=== PATIENT | male | born 1975 | race Caucasian/White ===

== ENCOUNTER 2021-04-09 14:14 | Inpatient (IN) | payer MEDICAID, SELFPAY ==
[2021-04-09 14:27] VITALS: BP 119/77; PULSE 97; RESP 17; TEMP 36.7; O2SAT 97
[2021-04-09 14:52] VITALS: BMI 16.9
[2021-04-09] MEDS: LORazepam 2 mg Tablet PO (18:23)
[2021-04-09] MEDS: duloxetine 60 mg Capsule PO (18:24)
[2021-04-09] MEDS: acetaminophen 325 mg Tablet 650 MG PO (18:28)
[2021-04-09] MEDS: nicotine 2 mg Gum BUCCAL (18:34)
[2021-04-09 20:37] VITALS: BP 123/79; PULSE 106; RESP 20; TEMP 36.7; O2SAT 97
[2021-04-09] MEDS: mirtazapine 15 mg Tablet PO (20:54)
[2021-04-10 05:47] VITALS: BP 115/74; PULSE 81; RESP 16; TEMP 36.6; O2SAT 97
[2021-04-10] MEDS: nicotine 2 mg Gum BUCCAL ×4 (06:18→21:01)
--- NOTE | 2021-04-10 07:29 | W.PM.NPUH&PS ---
Providers/Chief Complaint Admitting Physician: Sathish Calabrese MD Chief Complaint: Depression HPI NPU History of Present Illness Andrés Siddiqi is a 45 year old male admitted to the emergency department outside hospital with the following report: 45-year-old male presents with medical support specialist for suicidal ideation with no specific plan.? States he has made two suicide attempts in the past.? Reports his last treatment was January 2021, was in It Would like to Go Back to [place].? States That He Has Been Drinking Alcohol, about a Gallon of Vodka This Weekend, Last Alcohol Intake Was This Morning.? States That He Has Not Eaten in 2 Days.? Denies Recreational Drug Use for about 1 Year Now.? States He Smokes Cigarettes.? Reports That He Is Currently Feeling Anxious and Feels As If His Prescribe Cymbalta Is Not Working for Him.? He Denies Fever, Cough, Difficulty Breathing, Shortness of Breath Chest Pain, Vomiting or Diarrhea.? States He Only Has One Kidney, Left Kidney Noted.? He Has a History of Rheumatoid Arthritis. He was admitted to the neuropsychiatry unit for definitive treatment of these issues. He was hospitalized in January in [facility]. They discharged him on Cymbalta 60 mg daily and Remeron 15 mg at bedtime he says that he does not feel well. He has been on Zoloft and Valium previously and got the Zoloft was helpful. He also thinks that Paxil has been helpful in the past. He does not remember the dose of either of those medications The Remeron does not do much for his sleep. He still takes a handful of [id number] sleeping aids. He has been on Seroquel which has been helpful before. He denies weight gain from these medications. He has a lot of stomach upset from his anxiety. He has diverticulitis. He has always had problems with depression. He was admitted to the psychiatric hospital a couple times as a teenager. He says that the anxiety was not diagnosed until later. His depression has been worse again recently. He has been drinking very heavily over this past weekend he drank a gallon of vodka. He smokes marijuana whenever he can. He has been smoking marijuana all of his life. It helps the anxiety and the pain. He has not had new contact for it since he moved to this area. He has had worsening rheumatoid arthritis since 2015. 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 His father in 2017 and his mother in 2019. She drank herself to have. He was doing okay when he left the hospital in January. His depression worsened significantly in February after he was denied disability again. 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 He just wants to come in the hospital and get his medications changed and go home in 2 or 3 days. He has dogs that need to be taken care of. He has a female roommate that can take care of them some but she works 8 hours a day. PAST PSYCHIATRIC HISTORY As above SOCIAL HISTORY As above Meds NPU Home Medications Medication Instructions Recorded Confirmed Last Taken Type Cymbalta 60 mg PO DAILY 04/09/21 04/09/21 1 Day Ago History ~04/08/21 60 mg mirtazapine 15 mg tablet (Remeron) 15 mg PO DAILY 04/09/21 04/09/21 1 Day Ago History ~04/08/21 15 mg Allergies Allergy/AdvReac Type Severity Reaction Status Date / Time iodine Allergy ALGY-Rash Verified 04/09/21 15:01 Mental Status Exam MSE Comments: This is a 45-year old male who appears approximately his stated age and is in no acute distress. He is dressed in hospital scrubs. His grooming is fair. He has a full roca. He is somewhat tremulous. psychomotor activity mildly decreased except for the tremors. Speech is at a regular rate and rhythm, normal volume, good articulation, not pressured. Alert, oriented X3 Attention and concentration average. Memory is intact Mood is depressed. Affect is moderately dysphoric. Thought process is logical and goal-directed. Thought content: Denies auditory and visual hallucinations. No delusions or paranoia are noted. No current suicidal ideation but had thoughts very recently. and no homicidal ideation. Fund of knowledge is average. Insight and judgment appear to be fair. Impulse control is fairly good. Vitals/I&O/Wt Last Vital Signs Temp 97.8 F 04/10/21 05:47 Pulse 81 04/10/21 05:47 Resp 16 04/10/21 05:47 BP 115/74 04/10/21 05:47 Pulse Ox 97 04/10/21 05:47 Weight last 48 hrs Weight 56.699 kg A&P Assessment and plan (1) Depression: Status: Acute (2) Anxiety: Status: Acute (3) Alcohol abuse: Status: Acute (4) Suicidal ideation: Status: Acute Plan This is a disabled 45-year-old male with a long history of anxiety and depression who was admitted after binging on alcohol and having suicidal ideation. Plan: 1. Continue current medication. We will change Cymbalta to Zoloft 100 mg and plan on increasing to 200 mg as tolerated. Add Seroquel 100 mg at bedtime. 2. Continue every 15 minute checks for safety. 3. Encourage individual, group and milieu therapies. 4. Encourage sober living treatment after discharge at the highest level of care to which he is willing to commit. 5. We will monitor for safety for himself in the community prior to discharge. 6. [facility] protocol for alcohol withdrawal. Involuntary Hold Information 96 Hour Hold: 96 Hour Involuntary Admission: No Attestations NPU Medical Necessity Statement*: Inpatient hospitalization is medically necessary and the clinically appropriate intervention at this time. We will initiate medications and make changes as indicated. He will be in the hospital for over 2 midnights. Likely length of stay 4-6 days Coding Level of Care Code Acute Warp Worker for [facility] Diagnoses Depression F32.A Anxiety F41.9 Alcohol abuse F10.10 Suicidal ideation R45.856
[2021-04-10] MEDS: sertraline 100 mg Tablet PO (08:18)
[2021-04-10] MEDS: multivitamin therapeutic Tablet 1 TAB PO (08:18)
[2021-04-10] MEDS: folic acid 1 mg Tablet PO (08:18)
[2021-04-10] MEDS: thiamine 100 mg Tablet PO (08:18)
[2021-04-10] MEDS: acetaminophen 325 mg Tablet 650 MG PO (12:13)
[2021-04-10] MEDS: LORazepam 2 mg Tablet PO (12:13)
[2021-04-10 14:00] VITALS: BP 113/81; PULSE 88; RESP 18; TEMP 36.5; O2SAT 97
[2021-04-10] MEDS: mirtazapine 15 mg Tablet PO (20:43)
[2021-04-10] MEDS: quetiapine 100 mg Tablet PO (20:43)
[2021-04-10] MEDS: hyDROXYzine 25 mg Capsule 50 MG PO (20:46)
[2021-04-10 21:51] VITALS: BP 130/83; PULSE 83; RESP 18; TEMP 36.5; O2SAT 97
[2021-04-11] MEDS: acetaminophen 325 mg Tablet 650 MG PO ×2 (01:20→15:23)
[2021-04-11] MEDS: trazodone 50 mg Tablet PO (01:20)
--- NOTE | 2021-04-11 01:21 | PC.NURSE ---
Addendum entered by Ioana Resendiz LPN 04/11/21 01:28: Patient states he has been having visual hallucinations this evening. He sees people from his past coming into his room and talking to him. He states at times it is his parents and they have been for awhile. He is not startled. When I came into the room he was not sure if I was real or not. He is hopeful the Trazadone will help him sleep. Original Note: During 15 minute rounds nursing staff noticed patient was very restless and I ask if he was ok. He stated he was in pain and he could not sleep. Trazadone and Tylenol given at 0120.
[2021-04-11] MEDS: OLANZapine 5 mg ODT PO (02:53)
--- NOTE | 2021-04-11 02:54 | PC.NURSE ---
Patient up off and on throughout night, given Trazodone with no noted effectiveness. Patient endorsed visual and auditory hallucinations, stated sometimes he sees sparkles and sometimes he sees people he knows and they are talking to him. Given Olanzapine 5 mg ODT as ordered.
[2021-04-11 06:00] VITALS: BP 99/67; PULSE 75; RESP 17; TEMP 36.1; O2SAT 92
[2021-04-11] MEDS: folic acid 1 mg Tablet PO (09:22)
[2021-04-11] MEDS: nicotine 2 mg Gum BUCCAL ×3 (09:22→18:18)
[2021-04-11] MEDS: thiamine 100 mg Tablet PO (09:22)
[2021-04-11] MEDS: sertraline 100 mg Tablet PO (09:22)
[2021-04-11] MEDS: multivitamin therapeutic Tablet 1 TAB PO (09:22)
[2021-04-11 14:00] VITALS: BP 108/75; PULSE 110; RESP 18; O2SAT 96
[2021-04-11] MEDS: LORazepam 2 mg Tablet PO (15:24)
--- NOTE | 2021-04-11 17:59 | P.NPUPN_ITS ---
Subjective NPU Subjective: Interval history: Patient presents today reporting that he is doing okay. He is using a walker because his cane has not allowed on the unit and reports that that came from rheumatoid arthritis and a bad hip. He was very resistant to conversation about the role his addiction played in his situation instead wanting to focus on anxiety. He has appoint with his doctor at [facility] on May 03. He would want us to initiate a benzodiazepine possibly Valium because he reports that what works and his outpatient doctor had given it to him. We discussed concerns regarding benzodiazepine use with someone with alcohol addiction which he seemed uninclined to listen. Mental Status Exam MSE Comments: Is an underweight white male in hospital scrubs with limited grooming and eye contact. No abnormal movements except for mild psychomotor retardation and some slowness and unsteadiness of gait with his walker. Cooperative with exam and no acute distress. Speech was decreased rate and volume. Mood described as anxious, affect subdued. Thought process organized. Thought content: Patient denied suicidal or homicidal ideation, there were no delusions reported or noted, he denied any auditory visual hallucinations. Attention and concentration were intact and memory appeared mostly reliable but none were formally tested. He is alert and oriented x3. Insight and judgment are limited, impulse control is limited.. Vitals/I&O/Wt Last Vital Signs Temp 97.3 F L 04/11/21 22:00 Pulse 97 04/11/21 22:00 Resp 20 H 04/11/21 22:00 BP 123/80 04/11/21 22:00 Pulse Ox 98 04/11/21 22:00 A&P Assessment and plan (1) Depression: Status: Acute (2) Anxiety: Status: Acute (3) Alcohol abuse: Status: Acute (4) Suicidal ideation: Status: Acute Plan This is a disabled 45-year-old male with a long history of anxiety and depression who was admitted after binging on alcohol and having suicidal ideation. Plan: 1.? Continue current medication.? We changed Cymbalta to Zoloft 100 mg and plan on increasing to 200 mg as tolerated.? Add Seroquel 100 mg at bedtime. 2.? Continue every 15 minute checks for safety. 3.? Encourage individual, group and milieu therapies. 4.? Encourage sober living treatment after discharge at the highest level of care to which he is willing to commit. 5.? We will monitor for safety for himself and the community prior to discharge. 6.? [facility] protocol for alcohol withdrawal. Involuntary Hold Information 96 Hour Hold: 96 Hour Involuntary Admission: No Attestations NPU Medical Necessity Statement*: Inpatient hospitalization is medically necessary and the clinically appropriate intervention at this time.? We will initiate medications and make changes as indicated.? Likely length of stay 2-5 days Coding Level of Care Code Acute Hospital Account Manager for [facility] Fwd Diagnoses Depression F32.A Anxiety F41.9 Alcohol abuse F10.10 Suicidal ideation R45.855
[2021-04-11] MEDS: pneumococcal (23 valent) SDV 0.5 mL IM (19:49)
[2021-04-11] MEDS: quetiapine 100 mg Tablet PO (21:17)
[2021-04-11] MEDS: mirtazapine 15 mg Tablet PO (21:17)
[2021-04-11 22:00] VITALS: BP 123/80; PULSE 97; RESP 20; TEMP 36.3; O2SAT 98
[2021-04-12] MEDS: OLANZapine 5 mg ODT PO ×2 (01:20→18:25)
[2021-04-12] MEDS: haloperidol 5 mg Tablet PO (03:13)
--- NOTE | 2021-04-12 03:22 | PC.NURSE ---
Patient came to nurses station at approx 0120 c/o audio and visual hallucinations. Given PRN Zydis as orderered. Patient up at nurses station again at 0315 c/o AVH and no sleep. Given PRN Haldol as ordered.
[2021-04-12] MEDS: sertraline 100 mg Tablet PO (09:23)
[2021-04-12] MEDS: multivitamin therapeutic Tablet 1 TAB PO (09:23)
[2021-04-12] MEDS: folic acid 1 mg Tablet PO (09:23)
[2021-04-12] MEDS: thiamine 100 mg Tablet PO (09:23)
[2021-04-12 14:00] VITALS: BP 102/66; PULSE 102; RESP 16; TEMP 36.6; O2SAT 98
[2021-04-12] MEDS: nicotine 2 mg Gum BUCCAL ×3 (15:21→19:22)
[2021-04-12] MEDS: acetaminophen 325 mg Tablet 650 MG PO ×2 (15:21→18:25)
--- NOTE | 2021-04-12 15:21 | P.NPUPN_ITS ---
Subjective NPU Subjective: Interval history: Patient presents today reporting that he has been fairly tired. He reports that is in part because he has not slept well because of how the medications are dispensed. We discussed the risk benefits and alternatives of increasing the trazodone to 100 mg p.o. nightly as a standing dose and then reevaluating tomorrow to determine what to do with the Seroquel or any other nighttime meds. We also discussed his plan moving forward of returning to his home and returning to [facility] for follow-up. Mental Status Exam MSE Comments: This is an underweight white male in hospital scrubs with improving grooming and eye contact.? No abnormal movements except for mild psychomotor retardation and some slowness and unsteadiness of gait with his walker.? Cooperative with exam and no acute distress.? Speech was continued decreased rate and volume with some improvement. Mood described as tired, affect subdued.? Thought process organized.? Thought content: Patient denied suicidal or homicidal ideation, there were no delusions reported or noted, he denied any auditory visual hallucinations.? Attention and concentration were intact and memory appeared mostly reliable but none were formally tested.? He is alert and oriented x3.? Insight and judgment are limited, impulse control is limited. Vitals/I&O/Wt Last Vital Signs Temp 97.8 F 04/12/21 14:00 Pulse 102 H 04/12/21 14:00 Resp 16 04/12/21 14:00 BP 102/66 04/12/21 14:00 Pulse Ox 98 04/12/21 14:00 A&P Assessment and plan (1) Depression: Status: Acute (2) Anxiety: Status: Acute (3) Alcohol abuse: Status: Acute (4) Suicidal ideation: Status: Acute Plan This is a disabled 45-year-old male with a long history of anxiety and depression who was admitted after binging on alcohol and having suicidal ideation. Plan: 1.? Continue current medication.? We changed Cymbalta to Zoloft 100 mg and plan on increasing to 200 mg as tolerated.? Added Seroquel 100 mg at bedtime. Will make trazodone 100 mg p.o. nightly as a standing dose. 2.? Continue every 15 minute checks for safety. 3.? Encourage individual, group and milieu therapies. 4.? Encourage sober living treatment after discharge at the highest level of care to which he is willing to commit. 5.? We will monitor for safety for himself and the community prior to discharge. 6.? [facility] protocol for alcohol withdrawal. Involuntary Hold Information 96 Hour Hold: 96 Hour Involuntary Admission: No Attestations NPU Medical Necessity Statement*: Inpatient hospitalization is medically necessary and the clinically appropriate intervention at this time.? We will initiate medications and make changes as indicated.? Likely length of stay 2-4 days Coding Level of Care Code Acute Communication Clerk for [facility] Fwd Diagnoses Depression F32.A Anxiety F41.9 Alcohol abuse F10.10 Suicidal ideation R45.853
[2021-04-12] MEDS: quetiapine 100 mg Tablet PO (20:16)
[2021-04-12] MEDS: mirtazapine 15 mg Tablet PO (20:16)
[2021-04-12] MEDS: trazodone 100 mg Tablet PO (20:16)
[2021-04-12 20:56] VITALS: BP 104/69; PULSE 101; RESP 18; TEMP 36.7; O2SAT 98
[2021-04-13 06:00] VITALS: BP 98/65; PULSE 93; RESP 18; O2SAT 97
[2021-04-13] MEDS: nicotine 2 mg Gum BUCCAL ×5 (06:28→20:51)
[2021-04-13] MEDS: acetaminophen 325 mg Tablet 650 MG PO ×3 (07:07→20:51)
[2021-04-13] MEDS: folic acid 1 mg Tablet PO (09:49)
[2021-04-13] MEDS: sertraline 100 mg Tablet PO (09:49)
[2021-04-13] MEDS: multivitamin therapeutic Tablet 1 TAB PO (09:49)
[2021-04-13] MEDS: thiamine 100 mg Tablet PO (09:49)
[2021-04-13] MEDS: OLANZapine 5 mg ODT PO (12:59)
[2021-04-13 14:00] VITALS: BP 118/80; PULSE 92; RESP 18; TEMP 36.3; O2SAT 100
[2021-04-13] MEDS: haloperidol 5 mg Tablet PO (15:07)
[2021-04-13] MEDS: LORazepam 1 mg Tablet PO (16:35)
--- NOTE | 2021-04-13 17:34 | W.PM.NPUPNS ---
Subjective NPU Subjective: Interval history: Patient presents today reporting that he is doing much better having slept quite well last night. He reports the adjustments made yesterday in addition to the medication regiment Dr. Calabrese had prescribed led to him having one of his best nights of sleep in a very long time. He reports that has helped him feel some new optimism about things get better and we discussed the likelihood of discharge in the next 48 hours. Medications: Medication Review Details: This is an underweight white male in hospital scrubs with improving grooming and eye contact.? No abnormal movements except for mild psychomotor retardation and some slowness and unsteadiness of gait with his walker.? Cooperative with exam and no acute distress.? Speech was more normal rate and volume.? Mood described as a little better, affect congruent.? Thought process organized.? Thought content: Patient denied suicidal or homicidal ideation, there were no delusions reported or noted, he denied any auditory visual hallucinations.? Attention and concentration were intact and memory appeared mostly reliable but none were formally tested.? He is alert and oriented x3.? Insight and judgment are limited, but improving impulse control is limited. Vitals/I&O/Wt Last Vital Signs Temp 97.4 F L 04/13/21 14:00 Pulse 92 04/13/21 14:00 Resp 18 04/13/21 14:00 BP 118/80 04/13/21 14:00 Pulse Ox 100 04/13/21 14:00 A&P Assessment and plan (1) Depression: Status: Acute (2) Anxiety: Status: Acute (3) Alcohol abuse: Status: Acute (4) Suicidal ideation: Status: Acute Plan This is a disabled 45-year-old male with a long history of anxiety and depression who was admitted after binging on alcohol and having suicidal ideation. Plan: 1.? Continue current medication.? We changed Cymbalta to Zoloft 100 mg and plan on increasing to 200 mg as tolerated.? Added Seroquel 100 mg at bedtime.? trazodone 100 mg p.o. nightly as a standing dose. 2.? Continue every 15 minute checks for safety. 3.? Encourage individual, group and milieu therapies. 4.? Encourage sober living treatment after discharge at the highest level of care to which he is willing to commit. 5.? We will monitor for safety for himself and the community prior to discharge. 6.? [facility] protocol for alcohol withdrawal. Involuntary Hold Information 96 Hour Hold: 96 Hour Involuntary Admission: No Attestations NPU Medical Necessity Statement*: Inpatient hospitalization is medically necessary and the clinically appropriate intervention at this time.? We will initiate medications and make changes as indicated.? Likely length of stay 2-4 days Coding Level of Care Code Acute Dough Cutting Machine Operator for [facility] Fwd Diagnoses Depression F32.A Anxiety F41.9 Alcohol abuse F10.10 Suicidal ideation R45.856
[2021-04-13] MEDS: quetiapine 100 mg Tablet PO (20:51)
[2021-04-13] MEDS: mirtazapine 15 mg Tablet PO (20:51)
[2021-04-13] MEDS: trazodone 100 mg Tablet PO (20:51)
[2021-04-13 21:55] VITALS: BP 118/80; PULSE 92; RESP 18; TEMP 36.3; O2SAT 100
[2021-04-14 06:00] VITALS: BP 95/62; PULSE 109; RESP 16; TEMP 36.7; O2SAT 97
[2021-04-14] MEDS: acetaminophen 325 mg Tablet 650 MG PO ×3 (07:23→20:55)
[2021-04-14] MEDS: sertraline 100 mg Tablet PO (07:42)
[2021-04-14] MEDS: thiamine 100 mg Tablet PO (07:42)
[2021-04-14] MEDS: nicotine 2 mg Gum BUCCAL ×4 (07:43→17:16)
[2021-04-14] MEDS: multivitamin therapeutic Tablet 1 TAB PO (07:43)
[2021-04-14] MEDS: folic acid 1 mg Tablet PO (07:43)
[2021-04-14] MEDS: LORazepam 1 mg Tablet PO (12:52)
[2021-04-14 14:00] VITALS: BP 116/76; PULSE 104; RESP 18; TEMP 36.4; O2SAT 95
[2021-04-14] MEDS: OLANZapine 5 mg ODT PO (16:31)
--- NOTE | 2021-04-14 18:19 | W.PM.NPUPNS ---
Subjective NPU Subjective: Interval history: The patient presents today reporting that he is really glad that he came to the hospital and feels like he has gotten a considerable amount out of this hospitalization. For the second day in a role, he reports that he slept very well, and he feels like the medications have been helpful. As he has continued to report, he has his own place and he will return there after discharge, likely tomorrow. He reports he is having a lot of anxiety about leaving but knows at some point he is going to be going. We discussed the importance of sobriety and the need to continue with follow-up after discharge. He reports that he does have some individuals in his [place] that are supportive, and he should be able to lean on them, but feels like he is getting towards the point where he can depend on himself. He reports he is eating well and overall everything has been going better. Mental Status Exam MSE Comments: This is a slender, white male, in hospital scrubs, with improving grooming, and eye contact. No abnormal movements. He is steadier with his walker. Cooperative with exam in no acute distress. Speech was normal rate and volume. Mood described as getting better; affect congruent. Thought process, organized. Thought content: patient denied any suicidal or homicidal ideation, there were no delusions reported or noted, patient denied any auditory or visual hallucinations. Attention, concentration, and memory appeared intact but were not formally tested. Alert and oriented times three. Insight and judgment appear fair, impulse control improving. Vitals/I&O/Wt Last Vital Signs Temp 98.3 F 04/14/21 20:19 Pulse 96 04/14/21 20:19 Resp 17 04/14/21 20:19 BP 119/75 04/14/21 20:19 Pulse Ox 98 04/14/21 20:19 Weight last 48 hrs Weight 62.686 kg A&P Assessment and plan (1) Depression: Status: Acute (2) Anxiety: Status: Acute (3) Alcohol abuse: Status: Acute (4) Suicidal ideation: Status: Acute Plan This is a disabled 45-year-old male with a long history of anxiety and depression who was admitted after binging on alcohol and having suicidal ideation. Plan: 1.? Continue current medication.? We changed Cymbalta to Zoloft 100 mg and plan on increasing to 200 mg as tolerated.? Added Seroquel 100 mg at bedtime.? trazodone 100 mg p.o. nightly as a standing dose. 2.? Continue every 15 minute checks for safety. 3.? Encourage individual, group and milieu therapies. 4.? Encourage sober living treatment after discharge at the highest level of care to which he is willing to commit. 5.? We will plan for discharge likely tomorrow 6.? [facility] protocol for alcohol withdrawal. Involuntary Hold Information 96 Hour Hold: 96 Hour Involuntary Admission: No Attestations NPU Medical Necessity Statement*: Inpatient hospitalization is medically necessary and the clinically appropriate intervention at this time.? We will initiate medications and make changes as indicated.? Likely length of stay 1-3 days Coding Level of Care Code Acute Host/Hostess Ground for [facility] Fwd Diagnoses Depression F32.A Anxiety F41.9 Alcohol abuse F10.10 Suicidal ideation R45.854
[2021-04-14] MEDS: nicotine 4 mg lozenge MUCOUS MEM ×2 (19:13→20:55)
[2021-04-14 20:19] VITALS: BP 119/75; PULSE 96; RESP 17; TEMP 36.8; O2SAT 98
[2021-04-14] MEDS: mirtazapine 15 mg Tablet PO (20:26)
[2021-04-14] MEDS: quetiapine 100 mg Tablet PO (20:26)
[2021-04-14] MEDS: trazodone 100 mg Tablet PO (20:26)
[2021-04-14] MEDS: hyDROXYzine 25 mg Capsule 50 MG PO (22:26)
[2021-04-14] MEDS: calcium carbonate 500 mg Chew Tablet PO (23:18)
[2021-04-15 06:00] VITALS: BP 104/66; PULSE 107; RESP 23; TEMP 36.6; O2SAT 98
[2021-04-15] MEDS: acetaminophen 325 mg Tablet 650 MG PO (07:02)
[2021-04-15] MEDS: sertraline 100 mg Tablet PO (09:17)
[2021-04-15] MEDS: folic acid 1 mg Tablet PO (09:18)
[2021-04-15] MEDS: multivitamin therapeutic Tablet 1 TAB PO (09:18)
[2021-04-15] MEDS: thiamine 100 mg Tablet PO (09:18)
[2021-04-15] MEDS: calcium carbonate 500 mg Chew Tablet PO (09:33)
[2021-04-15] MEDS: nicotine 4 mg lozenge MUCOUS MEM ×2 (09:33→12:24)
--- NOTE | 2021-04-15 10:33 | P.NPUDS_ITS ---
Diagnoses at Discharge Discharge Diagnosis (1) Depression: Status: Acute (2) Anxiety: Status: Acute (3) Alcohol abuse: Status: Acute (4) Suicidal ideation: Status: Acute Reason for Visit Reason for Visit: Depression Brief History: History of Present Illness Andrés Siddiqi is a 45 year old male admitted to the emergency department outside hospital with the following report: 45-year-old male presents with assessment expert for suicidal ideation with no specific plan.? States he has made two suicide attempts in the past.? Reports his last treatment was January 2021, was in [place] Would like to Go Back to [place].? States That He Has Been Drinking Alcohol, about a Gallon of Vodka This Weekend, Last Alcohol Intake Was This Morning.? States That He Has Not Eaten in 2 Days.? Denies Recreational Drug Use for about 1 Year Now.? States He Smokes Ciga rettes.? Reports That He Is Currently Feeling Anxious and Feels As If His Prescribe Cymbalta Is Not Working for Him.? He Denies Fever, Cough, Difficulty Breathing, Shortness of Breath Chest Pain, Vomiting or Diarrhea.? States He Only Has One Kidney, Left Kidney Noted.? He Has a History of Rheumatoid Arthritis. He was admitted to the neuropsychiatry unit for definitive treatment of these issues.? He was hospitalized in January in [facility].? They discharged him on Cymbalta 60 mg daily and Remeron 15 mg at bedtime he says that he does not feel well.? He has been on Zoloft and Valium previously and got the Zoloft was helpful.? He also thinks that Paxil has been helpful in the past.? He does not remember the dose of either of those medications? The Remeron does not do much for his sleep.? He still takes a handful of [id number] sleeping aids.? He has been on Seroquel which has been helpful before.? He denies weight gain from these medications.? He has a lot of stomach upset from his anxiety.? He has diverticulitis.? He has always had problems with depression.? He was admitted to the psychiatric hospital a couple times as a teenager.? He says that the anxiety was not diagnosed until later.? His depression has been worse again recently.? He has been drinking very heavily over this past weekend he drank a gallon of vodka.? He smokes marijuana whenever he can.? He has been smoking marijuana all of his life.? It helps the anxiety and the pain.? He has not had new contact for it since he moved to this area.? He has had worsening rheumatoid arthritis since 2016.? 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 He donated kidney around that time also.? His father in 2017 and his mother in 2019.? She drank herself to have.? He was doing okay when he left the hospital in January.? His depression worsened significantly in February after he was denied disability again.? 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 He just wants to come in the hospital and get his medications changed and go home in 2 or 3 days.? He has dogs that need to be taken care of.? He has a female roommate that can take care of them some but she works 8 hours a day. PAST PSYCHIATRIC HISTORY As above SOCIAL HISTORY As above Hospital Course Hospital Course He slowly acclimated to the individual, group and milieu therapies provided. He was initially struggling with the medication regiment but with the increase in trazodone and the Seroquel combined he was able to start to sleep better which led to improvement in his overall functioning. Use the walker on the unit but he was not allowed to use his cane but again stability and improved significan tly overall. He was able to contract for safety outside the hospital prior to discharge. At the outside hospital, patient had routine laboratory studies which were within normal limits except for few outliers. Additionally there was a general medical evaluation which was also within normal limits and revealed no new acute processes. Discharge Summary: At the time of discharge, he denied psychosis or lethality. Mood and anxiety were well managed. Patient endorsed a plan to avoid all drugs of abuse and follow-up with the aftercare recommendations of the treatment team. Patient was evaluated and deemed to be absent credible lethality, and had achieved the maximum benefit from an inpatient hospitalization, so was discharged. Involuntary Hold Information 96 Hour Hold: 96 Hour Involuntary Admission: No Mental Status Exam MSE Comments: This is a slender, white male, in hospital scrubs, with improving grooming, and eye contact. No abnormal movements. He is steadier with his walker. Cooperative with exam in no acute distress. Speech was normal rate and volume. Mood described as getting better; affect congruent. Thought process, organized. Thought content: patient denied any suicidal or homicidal ideation, there were no delusions reported or noted, patient denied any auditory or visual hallucinations. Attention, concentration, and memory appeared intact but were not formally tested. Alert and oriented times three. Insight and judgment appear fair, impulse control improving. Discharge Data Vitals: Last Vital Signs Temp 97.9 F 04/15/21 06:00 Pulse 107 H 04/15/21 06:00 Resp 23 H 04/15/21 06:00 BP 104/66 04/15/21 06:00 Pulse Ox 98 04/15/21 06:00 Discharge Plan Discharge Patient Disposition: Home Condition: Stable Prescriptions: New sertraline 100 mg Tablet 100 mg PO DAILY 30 Days Qty: 30 1RF quetiapine 100 mg Tablet 100 mg PO BEDTIME 30 Days Qty: 30 1RF trazodone 100 mg Tablet 100 mg PO BEDTIME 30 Days Qty: 30 1RF Vitamin B-1 (mononitrate) 100 mg Tablet 100 mg PO DAILY 30 Days Qty: 30 1RF Continued Remeron 15 mg Tablet 15 mg PO DAILY 30 Days Qty: 30 1RF Rx Instructions: Takes at HS Discontinued Cymbalta 60 mg PO DAILY 0RF Rx Instructions: Takes one every AM. Discharge Orders: Discharge Order (Routine); Ordered 04/15/21 Ordered By: Michael Jones Referrals: [facility] [Other] - 05/03/21 12:45 pm (Medication Management) [facility] [Other] - 04/19/21 10:00 am Discharge Diet: Regular Discharge Activity: Resume usual activity Patient Instructions: Alcohol Abuse, Depression (ED), Generalized Anxiety Disorder (ED), Opioid Safety Discharge Attestations NPU Time Spent in Discharge Care*: less than 30 min Specific Discharge Activities: Specific discharge activities: educating patient, discussing with outpatient case manager/social workers/dc planners, documenting/other paperwork and evaluating patient/reviewing data Coding Level of Care Code Acute Chg FW DC note Diagnoses Depression F32.A Anxiety F41.9 Alcohol abuse F10.10 Suicidal ideation R45.85
[2021-04-15] MEDS: LORazepam 1 mg Tablet PO (10:54)
--- NOTE | 2021-04-15 10:55 | PC.NURSE ---
PRN MED PT GIVEN 1MG ATIVAN FOR STATED ANXIETY, WILL CONTINUE TO MONITOR.
[2021-04-15 10:57] VITALS: BP 104/66; PULSE 107; RESP 23; TEMP 36.6; O2SAT 98
[2021-04-15 11:21] VITALS: BP 104/66; PULSE 107; RESP 23; TEMP 36.6; O2SAT 98
[2021-04-15] MEDS: ibuprofen 800 mg tablet PO (12:15)
[2021-04-15 14:00] VITALS: BP 110/73; PULSE 97; RESP 18; TEMP 36.8; O2SAT 97
== END 2021-04-15 15:12 | disposition home or self-care (01) | DRG 881 ==
PROVIDERS: Admitting Provider Psychiatry & Neurology Psychiatry; Visit Provider Psychiatry & Neurology Psychiatry
DX: F32.A Depression, unspecified (principal); R45.851 Suicidal ideations; Z91.51 Personal history of suicidal behavior; F17.210 Nicotine dependence, cigarettes, uncomplicated; F10.10 Alcohol abuse, uncomplicated; F41.9 Anxiety disorder, unspecified
CPT/HCPCS: 90471; 90686; 90732; 97150; 97165